=== PATIENT | female | born 1985 | race Caucasian/White ===

== ENCOUNTER 2017-10-19 16:09 | Emergency (ER) | payer OTHER ==
[~2017-10-19] VITALS: Ht 160 cm; Wt 128.3 kg
[~2017-10-19 16:09] MED LIST: ALBUTEROL SULF8.5 GM IH; ALBUTEROL17 G1 IH; ASPIRIN325 MG PO; BENTYL10 MG PO; BENTYL20 MG PO; CLONAZEPAM0.5 MG PO; CYMBALTA20 MG PO; CYMBALTA60 MG PO; DILAUDID2 MG PO; ELAVIL50 MG PO; FLEXERIL10 MG PO; HYDROCODON-ACE1 EAC7 PO; IMITREX25 MG PO; IMITREX4 MG/0.5 M SC; LOMOTIL TABLET1 EACH PO; METFORMIN HCL1000 M3 PO; MOTRIN800 MG PO; NAPROSYN500 MG PO; NEXIUM20 MG PO; NEXIUM40 MG PO; NORCO 7.5/321 TABLET PO; OMEPRAZOLE40 M1 PO; OTHER MEDS; PREDNISONE20 MG PO; PRILOSEC20 MG PO; ROBITUSSIN AC,T10 ML PO; SYMBICORT60 INHALAT IH; TOPAMAX25 M1 PO; TORADOL10 MG PO; TRAMADOL HCL100 MG PO; ULTRAM50 MG PO; VALIUM10 MG PO; VALIUM5 MG PO; ZOFRAN ODT4 MG PO
[2017-10-19 16:39] LABS: HEMATOCRIT 41.4 % (36.0-46.0); HEMOGLOBIN 14.1 G/DL (11.9-15.5); MCH 29.4 PG (29.0-34.0); MCHC 34.1 G/DL (30.0-36.0); MCV 86.3 FL (83-99); PLATELET COUNT 393 K/uL (156-360); RBC DIS.WIDTH-CV 12.5 % (11.8-14.6); RBC DIS.WIDTH-SD 39.4 % (39-53); WHITE BLOOD COUNT 10.2 K/uL (4.1-10.2)
[2017-10-19 16:47] LABS: ALBUMIN 4.2 g/dL (3.2-4.8); CHLORIDE 108 mEq/L (99-109); SODIUM 138 mEq/L (136-147)
[2017-10-19 16:49] LABS: GLUCOSE 98 mg/dL (70-99); TOTAL PROTEIN 6.7 g/dL (6.4-8.3)
[2017-10-19 16:51] LABS: TOTAL BILIRUBIN 0.4 mg/dL (0.0-1.0)
[2017-10-19 16:53] LABS: ALKALINE PHOSPHATASE 99 IU/L (3-129); CREATININE 0.7 mg/dL (0.6-1.3); GFR ESTIMATE (CALCULATED) > 59 mL/min/
[2017-10-19 16:54] LABS: UREA NITROGEN (BUN) 8 mg/dL (9-23)
[2017-10-19 16:55] LABS: AST (GOT) 17 IU/L (2-34)
[2017-10-19 16:55] LABS: APPEARANCE SL.HAZY ((CLEAR)); BILIRUBIN NEGATIVE; BLOOD LARGE; COLOR YELLOW ((YELLOW)); GLUCOSE (STRIP) NEGATIVE; KETONES NEGATIVE; LEUKOCYTES NEGATIVE; NITRITE NEGATIVE; PROTEIN (STRIP) 30; SPECIFIC GRAVITY 1.023 (1.000-1.030); UROBILINOGEN 0.2 MG/DL (0.2-1.0)
[2017-10-19 16:56] LABS: ALT (GPT) 19 IU/L (3-49)
[2017-10-19 17:01] LABS: RED BLOOD CELLS 20-30 /HPF (0-5)
[2017-10-19 17:02] LABS: BACTERIA 1+ /HPF; EPITHELIAL CELLS 1+ /HPF; MUCUS NONE SEEN /LPF; UCUL ADDED? NO; WHITE BLOOD CELLS NONE SEEN /HPF (0-5)
[2017-10-19 17:02] LABS: QUANTITATIVE HCG < 4.0 MIU/ML
[2017-10-19 19:42] LABS: LIPASE 10 U/L (1.0-51.0)
[2017-10-19] MEDS ORDERED: MOTRIN800 MG PO (21:45)
[2017-10-19] MEDS ORDERED: ZOFRAN4 MG PO (21:45)
[2017-10-19] MEDS ORDERED: BENTYL10 MG PO (21:45)
[2017-10-19 22:40] VITALS: BP 100/63
== END 2017-10-19 22:40 | disposition home or self-care (01) ==
LOC: EME 16:09
DX: R10.13 Epigastric pain (principal); R10.12 Left upper quadrant pain; J45.909 Unspecified asthma, uncomplicated; M79.7 Fibromyalgia; K58.0 Irritable bowel syndrome with diarrhea; Z79.82 Long term (current) use of aspirin; Z88.1 Allergy status to other antibiotic agents; Z88.8 Allergy status to other drugs, medicaments and biological substances; Z88.0 Allergy status to penicillin; Z91.040 Latex allergy status
CPT/HCPCS: 74177; 80053; 81003; 83690; 84702; 85027; 99281; 99284; J2270; J2405; J7030

== ENCOUNTER 2017-11-15 09:48 | Emergency (ER) | payer OTHER ==
[~2017-11-15] VITALS: Ht 160 cm; Wt 127.8 kg
[~2017-11-15 09:48] MED LIST changes: +ZOFRAN4 MG PO
[2017-11-15 10:51] VITALS: BP 120/70
== END 2017-11-15 10:53 | disposition home or self-care (01) ==
LOC: EME 09:48
PROC: 2W3DX1Z Immobilization of Left Lower Arm using Splint (ICD-10-PCS; principal; 2017-11-15)
DX: S63.502A Unspecified sprain of left wrist, initial encounter (principal); S50.12XA Contusion of left forearm, initial encounter; W00.0XXA Fall on same level due to ice and snow, initial encounter; Z79.84 Long term (current) use of oral hypoglycemic drugs; Z79.82 Long term (current) use of aspirin; Z87.891 Personal history of nicotine dependence
CPT/HCPCS: 73090; 73110; 99281; 99284